=== PATIENT | male | born 1950 | race African-American/Black ===

== ENCOUNTER → 2017-01-30 | Outpatient (CLI) | payer OTHER ==
[2017-01-30 16:19] LABS: INR 2.2; PROTHROMBIN TIME (PATIENT) 23.9 SECONDS (10.0-11.7)
== END | disposition home or self-care (01) ==
LOC: CLAB 15:48
PROVIDERS: Surgery Vascular Surgery
DX: Z51.81 Encounter for therapeutic drug level monitoring (principal); I73.9 Peripheral vascular disease, unspecified; Z79.01 Long term (current) use of anticoagulants
CPT/HCPCS: 36415; 85610

== ENCOUNTER → 2017-02-18 | Outpatient (CLI) | payer OTHER ==
[2017-02-18 12:40] LABS: INR 2.6; PROTHROMBIN TIME (PATIENT) 28.6 SECONDS (10.0-11.7)
== END | disposition home or self-care (01) ==
LOC: CLAB 11:55
PROVIDERS: Surgery Vascular Surgery
DX: Z51.81 Encounter for therapeutic drug level monitoring (principal); I73.9 Peripheral vascular disease, unspecified; Z79.01 Long term (current) use of anticoagulants
CPT/HCPCS: 36415; 85610